=== PATIENT | female | born 1965 ===

== ENCOUNTER 2021-11-15 11:18 | Emergency (ER) | payer MEDICAID ==
[2021-11-15 11:42] VITALS: BP 171/95
[2021-11-15 16:40] LABS: Alanine Aminotransferase 14 units/L (7-56); Albumin 4.3 g/dL (3.9-5); Blood Urea Nitrogen 8 mg/dL (7-17); Calcium 9.6 mg/dL (8.4-10.2); Hemolysis Index 195
[2021-11-15 16:59] LABS: Basophils # (Auto) 0.1 K/mm3 (0.0-0.1); Basophils % (Auto) 0.8 % (0.0-1.8); Eosinophils % (Auto) 0.4 % (0.0-4.3); Hematocrit 44.8 % (30.3-42.9); Hemoglobin 14.6 gm/dl (10.1-14.3); Lymphocytes # (Auto) 0.7 K/mm3 (1.2-5.4); Lymphocytes % (Auto) 7.1 % (13.4-35.0); Mean Corpuscular HGB Conc 33 % (30-34); Mean Corpuscular Volume 91 fl (79-97); Monocytes # (Auto) 0.2 K/mm3 (0.0-0.8); Monocytes % (Auto) 2.4 % (0.0-7.3); Platelet Count 281 K/mm3 (140-440); Red Blood Count 4.92 M/mm3 (3.65-5.03)
[2021-11-15 17:03] LABS: BUN/Creatinine Ratio 11
== END 2021-11-16 02:11 | disposition left against medical advice (07) ==
LOC: ED 11:18
DX: R10.9 Unspecified abdominal pain (principal); Z53.21 Procedure and treatment not carried out due to patient leaving prior to being seen by health care provider
CPT/HCPCS: 36415; 80053; 83690; 85025